=== PATIENT | male | born 1980 | race Caucasian/White ===

== ENCOUNTER 2016-09-07 19:55 | Emergency (ER) | payer SELFPAY ==
[2016-09-07 20:01] VITALS: BMI 29.0
--- NOTE | 2016-09-07 20:31 | DR.GENAD ---
HPI - PCP Primary Care Physician: nfd - Complaint/Symptoms Chief Complaint Doctors Comments: "Headache behind my eyes."" Chief Complaint:: pt c/o headache all day long Self Treatment fo Chief Complaint: tylenol and motrin without relief - Nurses notes reviewed Nurses Notes Review: Yes - Source History Provided: Patient - Mode of Arrival Mode of Arrival: Ambulatory - Timing Onset of Chief Complaint: 09/07/16 Came on: Gradually - Duration Duration: Intermittent Duration: Weeks - Severity Severity: Moderate - Associated Signs and Symptoms Associated Signs and Symptoms: lightheadedness, nausea and sniffling PMH - PMH Past Medical History: Yes Past Medical History: GERD Past Surgical History: Yes Surgical History: Appendectomy - Family History History of Family Medical Conditions: Yes Family Medical History: Cancer, Coronary Artery Disease - Social History Type of Tobacco Use: Cigarettes Alcohol Use: None Do you use any recreational Drugs:: No Lives With: Family Lives Where: Home - infectious screening In the last 2 months have you had wt loss of >10#?: NO Have you had fever, night sweats or hemotysis?: No Have you traveled outside the country in the last 6 months?: No Isolation: Standard ROS - Review of Systems Constitutional: No Symptoms Reported Eyes: Other (floaters) ENTM: Nose Congestion Respiratoy: No Symptoms Reported Cardiovascular: No Symptoms Reported Gastrointestinal/Abdominal: No Symptoms Reported Genitourinary: No Symptoms Reported Neurological: Headache Musculoskeletal: No Symptoms Reported Integumentary: No Symptoms Reported Hematologic/Lymphatic: No Symptoms Reported Endocrine: No Symptoms Reported Psychiatric: No Symptoms Reported All Other Systems: Reviewed and Negative PE - Vital Signs Vitals: Temperature 98.6 F Pulse Rate 83 Respiratory Rate 18 Blood Pressure 151/97 O2 Sat by Pulse Oximetry 97 - General Limitations: No Limitations General Appearance: In Distress - Head Head Exam: Normal Inspection - Eyes Eye exam: Normal Appearance - ENT ENT Exam: Normal Exam External Ear Exam: Normal External Inspection Nose Exam: Sinus Tenderness Mouth Exam: Normal Inspection Throat Exam: Normal Inspection - Neck Neck Exam: Normal Inspection - Chest Chest Inspection: Normal Inspection - Respiratory Respiratory Exam: Normal Lung Sounds Bilat Respiratory Exam: Bilateral Clear to Auscultation - Cardiovascular Cardiovascular Exam: Regular Rate, Normal Rhythm, Normal Heart Sounds - Abdominal Exam Abdominal Exam: Normal Inspection - Extremities Extremities Exam: Normal Inspection - Back Back Exam: Normal Inspection - Neurologic Neurological Exam: Alert, Oriented X3, CN II-XII Intact - Psychiatric Psychiatric Exam: Normal Affect, Normal Mood - Skin Skin Exam: Warm, Dry, Intact, Normal Color - Diagnosis Discharge Problem: Sinusitis, Headache - Discharge Plan Disposition: 01 HOME, SELF-CARE Condition: Stable - Follow ups/Referrals Follow ups/Referrals: [facility],None [Primary Care Provider] - 3 days - Instructions
[2016-09-07] MEDS ORDERED: ROCEPHIN VIAL 2 GM IM STA (20:38)
[2016-09-07] MEDS ORDERED: DECADRON INJ IM ONE (20:40)
[2016-09-07] MEDS ORDERED: TORADOL 60 MG VIAL IM ONE (20:40)
[2016-09-07] MEDS ORDERED: TORADOL 60 MG VIAL ONE (20:42)
[2016-09-07] MEDS ORDERED: ROCEPHIN VIAL 2 GM ONE (20:42)
[2016-09-07] MEDS ORDERED: XYLOCAINE 1 % (PLAIN) ONE (20:42)
[2016-09-07] MEDS ORDERED: DECADRON INJ ONE (20:42)
[2016-09-07] MEDS ORDERED: BENADRYL INJ 50 MG VIAL ONE (20:58)
[2016-09-07] MEDS ORDERED: NS 1000 ML 1,000 ML ONE (20:58)
[2016-09-07] MEDS ORDERED: NS 1000 ML 1,000 ML IV ONE (20:59)
[2016-09-07] MEDS ORDERED: BENADRYL INJ 50 MG VIAL IVP ONE (20:59)
[2016-09-07 21:11] LABS: BASOPHILS # (AUTO) 0.1 X10^3/uL (0.0-0.1); BASOPHILS % (AUTO) 0.9 % (0.2-1.0); EOSINOPHILS # (AUTO) 0.2 x10^3/uL (0.0-0.2); EOSINOPHILS % (AUTO) 1.7 % (0.9-2.9); HEMATOCRIT 45.8 % (42.0-54.0); HEMOGLOBIN 15.8 g/dL (13.5-18.0); LYMPHOCYTES # (AUTO) 3.7 X10^3/uL (1.3-2.9); LYMPHOCYTES % (AUTO) 28.4 % (21.0-51.0); MEAN CORPUSCULAR HEMOGLOBIN 30.1 pg (27.0-34.0); MEAN CORPUSCULAR HGB CONC 34.5 g/dL (33.0-35.0); MEAN CORPUSCULAR VOLUME 87.3 fL (80.0-100.0); MEAN PLATELET VOLUME 8.1 fL (7.4-11.0); MONOCYTES # (AUTO) 0.8 x10^3/uL (0.3-0.8); MONOCYTES % (AUTO) 6.4 % (0.0-13.0); NEUTROPHILS # (AUTO) 8.1 x10^3/uL (2.2-4.8); NEUTROPHILS % (AUTO) 62.6 % (42.0-75.0); PLATELET COUNT 315 X10^3/uL (150.0-450.0); RED BLOOD COUNT 5.24 X10^6/uL (4.7-6.0); RED CELL DISTRIBUTION WIDTH 13.4 % (11.6-16.5)
[2016-09-07 21:30] LABS: ALANINE AMINOTRANSFERASE 35 Units/L (12-78); ALBUMIN 4.2 g/dL (3.4-5.0); ALKALINE PHOSPHATASE 91 Units/L (46-116); ASPARTATE AMINO TRANSFERASE 19 Units/L (15-37); BLOOD UREA NITROGEN 14 mg/dL (7-18); CALCIUM 9.4 mg/dL (8.5-10.1); CARBON DIOXIDE 29.3 mmol/L (21-32); CHLORIDE 104 mmol/L (98-107); CREATININE 1.14 mg/dL (0.70-1.30); GLUCOSE 88 mg/dL (65-99); SODIUM 139 mmol/L (136-145); TOTAL PROTEIN 8.3 g/dL (6.4-8.2); eGFR BLACK RACES > 60 (>60); eGFR NON BLACK RACES > 60 (>60)
--- NOTE | 2016-09-07 21:49 | RAD ---
Sinuses, three views Indication: Headache Comparison: None Findings: The major paranasal sinuses appear grossly patent. No significant sinus fluid level identi fied. Impression: No significant abnormality. Reported By:
[2016-09-07 22:09] VITALS: BP 134/76
== END 2016-09-07 22:05 | disposition home or self-care (01) ==
LOC: ER 20:05
DX: J01.90 Acute sinusitis, unspecified (principal); R51 Headache
CPT/HCPCS: 36415; 70220; 80053; 85025; 96365; 96372; 96374; 99283; A4222; J0696; J1100; J1200; J1885; J2001